=== PATIENT | female | born 1970 | race Caucasian/White ===

== ENCOUNTER 2018-08-22 18:34 | Outpatient (REF) | payer MEDICAID, SELFPAY ==
[2018-08-22 22:14] LABS: Abs Immature Grans 0.01 k/cumm (0.0-0.09); Absolute Basophil Count 0.04 k/cumm (0.0-0.2); Absolute Eosinophil Count 0.05 k/cumm (0.0-0.7); Absolute Lymphocyte Count 1.75 k/cumm (1.2-3.4); Absolute Monocyte Count 0.37 k/cumm (0.11-0.7); Absolute Neutrophil Count 2.99 k/cumm (1.2-6.7); Basophils % 0.8; HCT 38.4 % (36.0-46.0); HGB 12.5 g/dL (12.0-15.5); Immature Grans % 0.2; Lymphocytes % 33.6; Mean Corp. HGB Concentration 32.6 g/dL (32.0-36.0); Mean Corpuscular Hemoglobin 29.5 pg (27.0-33.0); Mean Corpuscular Volume 90.6 fL (80-95); Mean Platelet Volume 9.9 fL (8.0-11.0); Monocytes % 7.1; Neutrophils % 57.3; Platelet Count 263 x1000/uL (130-400); RBC 4.24 m/cumm (4.00-5.20); RBC Distribution Width 13.1 % (11.7-14.6); White Blood Cell Count 5.21 k/cumm (4.4-10.8)
[2018-08-22 22:20] LABS: ALT 34 U/L (12-78); AST 23 U/L (15-37); Alkaline Phosphatase 51 U/L (46-116); Amylase 32 U/L (25-115); BUN 18 mg/dL (7-18); Bilirubin, Total 0.4 mg/dL (0.2-1.0); CREATININE 0.86 mg/dL (0.55-1.02); Calcium 9.3 mg/dL (8.5-10.1); Chloride 103 mmol/L (98-107); FREE T4 0.93 ng/dL (0.76-1.46); Glucose 70 mg/dL (70-100); Potassium 3.3 mmol/L (3.5-5.1); Sodium 142 mmol/L (136-145); TSH 2.13 uIU/mL (0.358-3.74); Total Protein 7.2 g/dL (6.4-8.2)
[2018-08-22 22:22] LABS: C-Reactive Protein < 0.05 mg/dL (0.0-0.3)
[2018-08-22 23:25] LABS: ESR 9 MM/HR (0-20)
[2018-08-23 17:18] LABS: T3,Free 4.3 pg/ml (2.8-5.3)
[2018-08-24 11:08] LABS: Hepatitis A Antibody IgM Negative (NEGAT); Hepatitis B Core Antibody Negative (NEGAT); Hepatitis B surface Ag Negative (NEGAT); Hepatitis C Ab w Rflx HCV PCR Negative (NEGAT)
[2018-08-24 13:01] LABS: HIV-1/2 Ag & Ab Screen Negative (NEGAT)
== END 2018-08-22 18:54 ==
LOC: NCHCN 18:34
PROVIDERS: Visit Provider Family Medicine
DX: R63.4 Abnormal weight loss (principal); R00.2 Palpitations; Z11.4 Encounter for screening for human immunodeficiency virus [HIV]; Z11.59 Encounter for screening for other viral diseases
CPT/HCPCS: 80053; 85652; 86704; 86709; 86803; 87340; 87389; 82150; 84439; 84443; 84481; 85025; 86140

== ENCOUNTER 2020-12-04 03:41 | Outpatient (CLI) | payer MEDICAID, SELFPAY ==
[2020-12-04 08:08] LABS: Abs Immature Grans 0.01 10^3/uL (0.0-0.06); Absolute Basophil Count 0.06 10^3/uL (0.0-0.2); Absolute Lymphocyte Count 1.22 10^3/uL (1.2-3.4); Absolute Monocyte Count 0.41 10^3/uL (0.1-0.8); Absolute Neutrophil Count 2.64 10^3/uL (1.2-6.7); Basophils % 1.3; Eosinophils % 6.5; HCT 37.1 % (36.0-46.0); HGB 11.8 g/dL (11.2-15.7); Immature Grans % 0.2; Lymphocytes % 26.3; MCH 29.1 pg (27.0-33.0); MCHC 31.8 % (32.0-36.0); MCV 91.6 fL (80-95); MPV 9.4 fL (8.0-11.0); Monocytes % 8.8; Neutrophils % 56.9; Nucleated RBC 0 %; Platelet Count 210 10^3/uL (130-400); RBC 4.05 10^6/uL (3.93-5.22); RDW 13.2 % (11.7-14.6); RDW-SD 44.8 fL; WBC 4.64 10^3/uL (4.4-10.8)
[2020-12-04 09:25] LABS: ALT 23 U/L (14-59); AST 16 U/L (15-37); Albumin 3.7 g/dL (3.4-5.0); Alkaline Phosphatase 63 U/L (46-116); Anion Gap 7.3 mmol/L (3-11); BUN 21 mg/dL (7-18); Bilirubin, Total 0.2 mg/dL (0.2-1.0); CO2 30.7 mmol/L (21.0-32.0); CREATININE 0.9 mg/dL (0.55-1.02); Calcium 8.7 mg/dL (8.5-10.1); Chloride 103 mmol/L (98-107); Glucose 87 mg/dL (74-106); Sodium 141 mmol/L (136-145); TSH 2.11 uIU/mL (0.36-3.74); Total Protein 6.9 g/dL (6.4-8.2)
[2020-12-04 18:18] LABS: FSH 10.8 mIU/mL (See Note)
[2020-12-07 09:51] LABS: Hepatitis C Ab w Rflx HCV PCR Negative (Negative)
[2020-12-07 10:01] LABS: HIV-1/2 Ag & Ab Screen Negative (Negative)
[2020-12-07 10:32] LABS: Syphilis Serology (RPR) Negative (Negative)
== END 2020-12-04 03:42 | disposition home or self-care (01) ==
LOC: LBO 03:57
PROVIDERS: PCP Family Medicine; Visit Provider Nurse Practitioner Family
DX: F11.20 Opioid dependence, uncomplicated (principal); Z79.899 Other long term (current) drug therapy; E03.9 Hypothyroidism, unspecified; N92.6 Irregular menstruation, unspecified; Z11.59 Encounter for screening for other viral diseases; Z11.4 Encounter for screening for human immunodeficiency virus [HIV]
CPT/HCPCS: 36415; 80053; 86803; 87389; 83001; 84443; 85025; 86592

== ENCOUNTER 2023-07-25 20:41 | Outpatient (REF) | payer MEDICAID, SELFPAY ==
[2023-07-25 20:57] LABS: Abs Immature Grans 0.01 10^3/uL (0.0-0.06); Absolute Basophil Count 0.09 10^3/uL (0.0-0.2); Absolute Eosinophil Count 0.36 10^3/uL (0.0-0.7); Absolute Lymphocyte Count 2.43 10^3/uL (1.2-3.4); Absolute Monocyte Count 0.47 10^3/uL (0.1-0.8); Absolute Neutrophil Count 3.38 10^3/uL (1.2-6.7); Basophils % 1.3; Eosinophils % 5.3; HCT 42.4 % (36.0-46.0); HGB 13.4 g/dL (11.2-15.7); Immature Grans % 0.1; Lymphocytes % 36.1; MCH 28.1 pg (27.0-33.0); MCHC 31.6 % (32.0-36.0); MCV 89 fL (80-95); MPV 9.8 fL (8.0-11.0); Neutrophils % 50.2; Platelet Count 286 10^3/uL (130-400); RBC 4.77 10^6/uL (3.93-5.22); RDW 13.6 % (11.7-14.6); RDW-SD 44.5 fL; WBC 6.74 10^3/uL (4.4-10.8)
[2023-07-25 21:16] LABS: ALT 29 U/L (14-59); AST 26 U/L (15-37); Albumin 3.9 g/dL (3.4-5.0); Alkaline Phosphatase 94 U/L (46-116); Anion Gap 6.2 mmol/L (3-11); BUN 15 mg/dL (7-18); Bilirubin, Total 0.3 mg/dL (0.2-1.0); CO2 33.8 mmol/L (21.0-32.0); CREATININE 1.1 mg/dL (0.55-1.02); Chloride 103 mmol/L (98-107); Estimated GFR 60.08 (mL/min/1.73m2); FREE T4 0.94 ng/dL (0.76-1.46); Glucose 86 mg/dL (74-106); Potassium 3.9 mmol/L (3.5-5.1); Sodium 143 mmol/L (136-145); TSH 4.57 uIU/mL (0.36-3.74); Total Protein 8.2 g/dL (6.4-8.2)
[2023-07-26 19:33] LABS: Hepatitis C Ab w Rflx HCV PCR Negative (Negative)
== END 2023-07-25 20:42 | disposition home or self-care (01) ==
LOC: NCHCN 20:41
PROVIDERS: PCP Family Medicine; Visit Provider Family Medicine
DX: R63.5 Abnormal weight gain (principal); Z11.59 Encounter for screening for other viral diseases
CPT/HCPCS: 80053; 86803; 84439; 84443; 85025

== ENCOUNTER 2024-11-22 12:55 | Outpatient (REF) | payer MEDICAID, SELFPAY ==
--- NOTE | 2024-11-22 11:50 | PAPFT_PTH ---
PATIENT: Jennifer Lane LOC: NCN #:[id number] AGE/SX: 54/F ROOM: RE11/22/[address]: JANN: 1970 BED: DIS: 11/22/2024 SPEC #: [id number] RECD: 11/25/24 12:57 STATUS: JOHNNY SADLER #: [id number] CANDELARIO: 11/22/24 11:[address]: Chloe Arroyo DEPT: [facility] Cytology RECD BY: Ly Light ENTERED: 11/25/24 12:57 SP TYPE: PAPFT OTHR DR: Brandin Phillips Tissues: 1 - CX/ENDOCX FOR PAP SMEARS Procedures: PAP THIN PREP/[facility] Screening HPV DNA PROBE Comments: [id number] (HPV 16 & 18/45)
[2024-11-22 21:47] LABS: ALT 28 U/L (14-59); AST 25 U/L (15-37); Albumin 3.9 g/dL (3.4-5.0); Alkaline Phosphatase 99 U/L (46-116); Anion Gap 4.1 mmol/L (3-11); BUN 21 mg/dL (7-18); Bilirubin, Total 0.4 mg/dL (0.2-1.0); CO2 31.9 mmol/L (21.0-32.0); Calcium 9.4 mg/dL (8.5-10.1); Calculated LDL 130 mg/dL (<100); Chloride 106 mmol/L (98-107); Cholesterol 214 mg/dL (<200); Estimated GFR 66.95 (mL/min/1.73m2); Glucose 79 mg/dL (74-106); HDL Cholesterol 74 mg/dL (>or=50); Potassium 4.1 mmol/L (3.5-5.1); Sodium 142 mmol/L (136-145); Total Protein 8.4 g/dL (6.4-8.2); Triglyceride 50 mg/dL (<150)
== END 2024-11-22 12:56 | disposition home or self-care (01) ==
LOC: NCHCN 12:55
PROVIDERS: PCP Family Medicine; Visit Provider Family Medicine
DX: Z11.51 Encounter for screening for human papillomavirus (HPV) (principal); Z13.220 Encounter for screening for lipoid disorders; F19.11 Other psychoactive substance abuse, in remission; Z01.419 Encounter for gynecological examination (general) (routine) without abnormal findings
CPT/HCPCS: 80053; 80061; 88142; 87624